=== PATIENT | male | born 1990 | race Caucasian/White ===

== ENCOUNTER 2024-07-26 03:50 | Emergency (ER) | payer BC ==
[2024-07-26] MEDS: Acetaminophen/HYDROcodone 325-5 MG Tab PO ONE ×2 (04:22→05:27)
[2024-07-26] MEDS: Ondansetron 4 MG Tab.DIS PO ONE (05:27)
== END 2024-07-26 05:35 | disposition home or self-care (01) ==
LOC: DL.ED 03:50
DX: S82.831A Other fracture of upper and lower end of right fibula, initial encounter for closed fracture (principal); W10.9XXA Fall (on) (from) unspecified stairs and steps, initial encounter
CPT/HCPCS: 29515; 73562-RT; 73610-RT; 99283; 99283-25; A9270-GY